=== PATIENT | male | born 1950 | race Caucasian/White ===

== ENCOUNTER → 2021-06-25 | Day surgery (SDC) | payer OTHER, MEDICARE ==
[2021-06-25] VITALS (11 sets, daily range): BP systolic 127–171; BP diastolic 54–74; PULSE 16–68; TEMP 97–98
[~2021-06-25] VITALS: Ht 177.8 cm; Wt 84.0 kg
[~2021-06-25] MED LIST: ADVIL200 MG PO; ASPIRIN E.C. 8181 MG PO; BENTYL 20MG20 MG/TAB PO; CALCIUM 600600 MG PO; CIALIS20 MG PO; COZAAR100 MG PO; CVS SPECTRAVIT1 EA15 PO; EPA FISH OIL1 SGL PO; GLUCOPHAGE500 MG/TAB PO; HCTZ 25MG TAB25 MG PO; IMODIUM 2MG CAPS2 MG PO; LIPITOR 40MG TA40 MG PO; NEURONTIN100 MG/CAP PO; NORCO 325 MG-51 TAB PO; PROTONIX 40MG T40 MG PO; PYRIDIUM 100MG100 MG PO; TESTOSTERONE TP; VITAMINC1000TA PO; ZOFRAN8 MG PO; ZYRTEC 10MG10 MG PO
--- NOTE | 2021-06-25 18:30 | NUR ---
PT transferred to express unit via bed from PACU. report received from Daniella RANGEL. Pt is awake and alert, satting 95% on room air, resp reg and unlabored, heart rate reg 60's. at bs. Pt rubbing left lower quad abd, reports pain 5/10. appears uncomfortable. voided 150 cc pink urine in urinal. ns infusing into 20g IV in left hand at 100 cc/hr. Pt is able to sip water and juice with no nausea as of yet.
--- NOTE | 2021-06-25 19:25 | NUR ---
PT sitting on edge of bed at this time. Bhavin reports his pain is a little better, he is no longer rubbing llq abd, and generally appears more comfortable. he has been able to eat jello, and continues to sip on some apple juice and water without any nausea.. pt's has gone to [facility].
--- NOTE | 2021-06-25 22:39 | NUR ---
PT walking around nurses station at this time. He has voided twice, very small amounts since his 2 fluid boluses. vitals have been stable, pt has been sitting up in chair talking with . no acute distress. pt has been drinking fluid, has had 48oz fluid and is continuing to drink.
[2021-06-25 23:44] LABS: CALCIUM 8.5 mg/dL (8.4-10.2); CREATININE, serum 1.46 mg/dL (0.72-1.25)
--- NOTE | 2021-06-26 00:38 | NUR ---
Third liter NS bolus is on board, pt was finally able to void 100cc dark urine, blood tinged, but no clots. Pt's llq abd pain is controlled, and pt feels ready to go home. I have reviewed dc/fu and rx instructions with pt and . They both verbalized understanding. IV is dc'd with cath intact, dressing applied. Pt is amb to exit with . steady gait.
== END ==
LOC: SDCO 14:16
PROVIDERS: Urology
DX: N20.1 Calculus of ureter (principal); I10 Essential (primary) hypertension; E78.5 Hyperlipidemia, unspecified; E11.9 Type 2 diabetes mellitus without complications; E78.00 Pure hypercholesterolemia, unspecified; Z79.899 Other long term (current) drug therapy; Z79.84 Long term (current) use of oral hypoglycemic drugs; Z85.828 Personal history of other malignant neoplasm of skin; Z79.891 Long term (current) use of opiate analgesic
CPT/HCPCS: C1769; C2617; J0690; J1885; J2405; J2704; J3010; J7030; Q9967

== ENCOUNTER 2024-04-06 13:05 | Day surgery (SDC) | payer OTHER, MEDICARE ==
[~2024-04-06] VITALS: Ht 175.3 cm; Wt 81.6 kg
[2024-04-06] VITALS (8 sets, daily range): BP systolic 161–179; BP diastolic 56–68; PULSE 53–59; TEMP 97.3
[~2024-04-06 13:05] MED LIST changes: +LR 1,000 ML IV SCH
[2024-04-06] MEDS ORDERED: ANDROGEL1.62% TOP (15:02)
[2024-04-06] MEDS ORDERED: LIPITOR 80MG80 MG PO (15:04)
[2024-04-06] MEDS ORDERED: MAG-OX 400400 MG/TAB PO (15:05)
[2024-04-06] MEDS ORDERED: VITAMIN D31000 I1 PO (15:06)
[2024-04-06] MEDS ORDERED: PROBIOTIC ACID1 EAC3 PO (15:07)
[2024-04-06] MEDS ORDERED: Iohexol 300 - 10 ML VIAL URETER-B ONE (17:14)
[2024-04-06] MEDS ORDERED: fentaNYL 50 MCG/ML 2 ML VIAL ONE (17:39)
[2024-04-06] MEDS ORDERED: Lidocaine PF 2% (20 MG/ML) 5 ML VIAL ONE (17:40)
[2024-04-06] MEDS ORDERED: NS 10 ML IV ONE (17:40)
[2024-04-06] MEDS ORDERED: Ondansetron 4 MG/2 ML VIAL ONE (17:52)
[2024-04-06] MEDS ORDERED: dexAMETHasone 10 MG/ML VIAL ONE (17:52)
[2024-04-06] MEDS ORDERED: Glycopyrrolate 0.2 MG/ML 1 ML VIAL ONE (18:24)
[2024-04-06] MEDS ORDERED: Lidocaine 2% (20 MG/ML) 20 ML UROJET UR ONE (18:29)
[2024-04-06] MEDS ORDERED: Hyoscyamine 0.125 MG Sublingual TAB SL PRN (18:30)
[2024-04-06] MEDS ORDERED: Naloxone 0.4 MG/ML VIAL IV PRN (18:30)
[2024-04-06] MEDS ORDERED: Ondansetron 4 MG/2 ML VIAL IV PRN (18:30)
[2024-04-06] MEDS ORDERED: Acetaminophen 325 MG TAB PO PRN (18:30)
[2024-04-06] MEDS ORDERED: Acetaminophen 500 MG TAB PO SCH (19:25)
--- NOTE | 2024-04-06 21:45 | NUR ---
Patient arrived from PACU at 192 via stretcher. Patient A&Ox4, denies any pain, N/V/D or any other complaints at this time. IV in left hand, noted to be clean dry and intact. Patient able to tolerate PO fluids and food. Urine noted to be pink in color with small clots present. Discharge paperwork reviewed at 2039 with patient and family at bedside. IV removed. Patient discharged at 2144 via wheelchair, accompained by family.
== END 2024-04-06 21:45 | disposition home or self-care (01) ==
LOC: SDCO 13:05 → SURG 19:25 → SDCO 21:45
DX: C67.9 Malignant neoplasm of bladder, unspecified (principal); Z85.048 Personal history of other malignant neoplasm of rectum, rectosigmoid junction, and anus; Z85.828 Personal history of other malignant neoplasm of skin; Z85.46 Personal history of malignant neoplasm of prostate; Z87.891 Personal history of nicotine dependence
CPT/HCPCS: OP; C1769; C2617; J0690; J1100; J2405; J2704; J3010; J7120; Q9967